=== PATIENT | female | born 1995 | race Caucasian/White ===

== ENCOUNTER 2019-02-15 06:42 | Emergency (ER) | payer OTHER ==
[~2019-02-15] VITALS: Ht 157.5 cm; Wt 82.0 kg
[~2019-02-15 06:42] MED LIST: ACET-141 PO; IBUP800T48 PO
[2019-02-15 06:45] VITALS: Ht 157.5 cm; Wt 82.0 kg
[2019-02-15] MEDS ORDERED: KETOROLAC 15 MG INJ IV STA (07:06)
[2019-02-15] MEDS ORDERED: ACETAMINOPHEN 500 MG TAB PO STA (07:06)
[2019-02-15] MEDS ORDERED: SOD CHLORIDE 0.9% 1,000 ML IV STA (07:06)
[2019-02-15 09:00] VITALS: BP 112/78; PULSE 59; RESP 17
== END 2019-02-15 09:02 | disposition home or self-care (01) ==
LOC: E/R 06:42
DX: G44.209 Tension-type headache, unspecified, not intractable (principal)
CPT/HCPCS: 70450; 80048; 81025; 85025; 93005; J1885; J7030; Z7610; 36415; 96374